=== PATIENT | female | born 1960 | race Caucasian/White ===

== ENCOUNTER 2016-07-29 15:01 | Emergency (ER) | payer SELFPAY ==
[~2016-07-29] VITALS: Ht 162.6 cm; Wt 65.8 kg
[2016-07-29 20:00] VITALS: BP 119/66
[2016-07-29 21:04] LABS: APPEARANCE,URINE Clear (CLEAR); BILIRUBIN,URINE Negative (NEGATIVE); BLOOD, URINE Trace-lysed Ery/uL (NEGATIVE); COLOR,URINE Yellow (YELLOW); KETONES,URINE Negative (NEGATIVE); LEUKOCYTE ESTERASE ,URINE Trace (NEGATIVE); NITRITE, URINE Negative (NEGATIVE); PROTEIN,URINE Trace mg/dl (NEGATIVE); UGLUCOSE Negative (NEGATIVE)
[2016-07-29 21:25] LABS: BACTERIA,URINE Few /HPF (None Seen); HYALINE CASTS, URINE Rare /LPF (None Seen); MUCUS,URINE Few /LPF (None Seen); RBC,URINE 0-2 /HPF (0-2); SQUAMOUS EPITHELIAL CELL,UR Few /HPF (None Seen)
== END 2016-07-29 22:09 | disposition home or self-care (01) ==
LOC: ER 15:02
DX: B86 Scabies (principal); S51.011D Laceration without foreign body of right elbow, subsequent encounter; F17.200 Nicotine dependence, unspecified, uncomplicated
CPT/HCPCS: 81000-TC; A4606; Z7610

== ENCOUNTER 2016-08-02 18:59 | Emergency (ER) | payer MEDICAID ==
[~2016-08-02] VITALS: Ht 162.6 cm; Wt 54.4 kg
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
--- NOTE | 2016-08-02 19:38 | NUR ---
PT IS AAO, AMBULATORY W/ STABLE GAIT. D/C IN STABLE CONDITION.
[2016-08-02 19:39] VITALS: BP 136/77
== END 2016-08-02 19:40 | disposition home or self-care (01) ==
LOC: ER 19:01
DX: F10.129 Alcohol abuse with intoxication, unspecified (principal); M79.601 Pain in right arm; F17.200 Nicotine dependence, unspecified, uncomplicated
CPT/HCPCS: A4606; Z7610

== ENCOUNTER → 2021-01-25 | Emergency (ER) | payer MEDICAID ==
[~2021-01-25] VITALS: Ht 162.6 cm; Wt 54.4 kg
[2021-01-25 15:53] VITALS: BP 140/77
--- NOTE | 2021-01-25 16:30 | NUR ---
DR SALAZAR WENT TO SEE PATIENT TO FIND OUT THAT SHE WAS SMOKING, SECURITY CALLED TO ESCORT HER OUT PER ORDER
--- NOTE | 2021-01-25 16:40 | NUR ---
PT SMOKING AT BEDSIDE. PER PT IS GOOD TO BE DISCHAGED.
--- NOTE | 2021-01-25 16:45 | NUR ---
SECURITY AT BEDSIDE FOR PT DISCHARGED.
--- NOTE | 2021-01-25 16:49 | NUR ---
Patient discharged to home in stable condition. Written and verbal after care instructions given. Patient verbalizes understanding of instruction.
== END | disposition home or self-care (01) ==
LOC: ER 15:50
DX: S09.90XA Unspecified injury of head, initial encounter (principal); Y08.89XA Assault by other specified means, initial encounter; Y93.89 Activity, other specified; Y92.89 Other specified places as the place of occurrence of the external cause; Y99.8 Other external cause status

== ENCOUNTER 2021-08-22 14:49 | Emergency (ER) | payer MEDICAID ==
[~2021-08-22] VITALS: Ht 162.6 cm; Wt 68.0 kg
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
--- NOTE | 2021-08-22 15:50 | NUR ---
Resting and asleepy no pain confused shouting
--- NOTE | 2021-08-22 16:30 | NUR ---
DR Cassandra PIPER AT bed side spook with pt
--- NOTE | 2021-08-22 18:39 | NUR ---
patient able to ambulate well with steady gait. Discharged accompanied by security.
[2021-08-22 18:54] VITALS: BP 118/75
--- NOTE | 2021-08-22 18:55 | NUR ---
Patient discharged to home in stable condition. Written and verbal after care instructions given. Patient verbalizes understanding of instruction.
== END 2021-08-22 18:55 | disposition home or self-care (01) ==
LOC: ER 14:50
DX: F10.129 Alcohol abuse with intoxication, unspecified (principal); F17.200 Nicotine dependence, unspecified, uncomplicated; Z60.2 Problems related to living alone; Y90.9 Presence of alcohol in blood, level not specified

== ENCOUNTER 2021-12-31 22:17 | Emergency (ER) | payer MEDICAID ==
[~2021-12-31] VITALS: Ht 162.6 cm; Wt 56.7 kg
[2021-12-31 23:50] VITALS: BP 141/68
== END 2022-01-01 06:01 | disposition home or self-care (01) ==
LOC: ER 22:57
DX: S00.81XA Abrasion of other part of head, initial encounter (principal); F10.129 Alcohol abuse with intoxication, unspecified; F17.200 Nicotine dependence, unspecified, uncomplicated; Z59.00 Homelessness unspecified; W18.30XA Fall on same level, unspecified, initial encounter; Y93.89 Activity, other specified; Y92.89 Other specified places as the place of occurrence of the external cause; Y99.8 Other external cause status; Y90.9 Presence of alcohol in blood, level not specified
CPT/HCPCS: 70450-TC